=== PATIENT | male | born 1955 | race Caucasian/White ===

== ENCOUNTER 2017-01-05 17:52 | Emergency (ER) | payer BC ==
[2017-01-05] MEDS ORDERED: Proparacaine 0.5% Ophth Soln 15 ML Bottle EYELF ONE (18:00)
[2017-01-05 18:03] VITALS: BP 128/81
[2017-01-05] MEDS ORDERED: Erythromycin Base 0.5% Ophth Oint 1 GM Tube EYELF ONE (18:14)
--- NOTE | 2017-01-05 18:20 | EDM.PDOC ---
ED HPI GENERAL MEDICAL PROBLEM - General Chief Complaint: Eye Problems Stated Complaint: SOMETHING IN LEFT EYE Time Seen by Provider: 01/05/17 18:10 Source of Information: Reports: Patient History Limitations: Reports: No Limitations - History of Present Illness INITIAL COMMENTS - FREE TEXT/NARRATIVE: Patient is a 61-year-old male who presents the ED complaining of left eye irritation, redness, and foreign body sensation. Patient states yesterday while grinding excessive auto body pudding off a car felt like something got in his eye. was able to visualize a foreign object to the pupil. In addition patient believes he has a stye to the upper outer eyelid. There's been some mild swelling, redness, and questionable pus to this area. Eye hasn't been excessively irritated and watery. He has been rubbing his eye. Denies any vision changes. Pain is mild. Treatments HOME INSPECTOR: Reports: Other (see below) Other Treatments HOME INSPECTOR: flushing Left Eye Pain Score (Numeric/FACES): 3 - Related Data Allergies Allergy/AdvReac Type Severity Reaction Status Date / Time No Known Allergies Allergy Verified 01/05/17 18:06 Home Meds: Home Meds . [No Known Home Meds] 01/05/17 [History] Past Medical History Musculoskeletal History: Reports: Other (See Below) Other Musculoskeletal History: left arm compound fracture Social & Family History - Tobacco Use Smoking Status *Q: Current Every Day Smoker Years of Tobacco use: 40 Packs/Tins Daily: 1 - Caffeine Use Caffeine Use: Reports: Soda - Recreational Drug Use Recreational Drug Use: No ED ROS GENERAL - Review of Systems Review Of Systems: ROS reveals no pertinent complaints other than HPI. ED EXAM GENERAL W FULL EYE - Physical Exam Exam: See Below Exam Limited By: No Limitations General Appearance: Alert, WD/WN, No Apparent Distress Eye Exam: Right Eye: Normal Inspection, Left Eye: Corneal Abrasion, Foreign Body , Bilateral Eye: EOMI, PERRL, Vision Changes (none stated) Visual Acuity (R) 20/: 40 Visual Acuity (L) 20/: 50 With Correction: No Eyelids: Left: Edema, Erythema, Infraorbital Anesthesia, Lid Everted for Exam, Stye (none found) Conjunctiva & Sclera: Right: Normal Appearance, Left: Injected Cornea Exam: Right: Normal Appearance, Left: Corneal Abrasion, Foreign Body, Examined with Flourescein Extraocular Movements: Bilateral: Intact Pupillary Size: Bilateral: 4 mm Pupillary Reaction: Bilateral: Brisk Ears: Hearing Grossly Normal Nose: Normal Inspection Throat/Mouth: Normal Voice, No Airway Compromise Neck: Normal Inspection, Supple Respiratory/Chest: No Respiratory Distress, No Accessory Muscle Use Cardiovascular: Normal Peripheral Pulses, Regular Rate, Rhythm Neurological: Alert, Oriented, CN II-XII Intact, Normal Cognition Psychiatric: Normal Affect, Normal Mood Skin Exam: Warm, Dry, Intact, Normal Color Course - Vital Signs Last Recorded V/S: Last Vital Signs Temp 98.0 F 01/05/17 18:02 Pulse 84 01/05/17 18:02 Resp 20 01/05/17 18:02 BP 128/81 01/05/17 18:02 Pulse Ox 94 L 01/05/17 18:02 - Orders/Labs/Meds Meds: Medications Discontinued Medications Generic Name Dose Route Start Last Admin Trade Name Freq PRN Reason Stop Dose Admin Erythromycin 1 gm 01/05/17 18:14 01/05/17 18:46 Erythromycin 0.5% Ophth Oint EYELF 01/05/17 18:15 1 dose ONETIME ONE Administration Proparacaine HCl 2 ml 01/05/17 18:00 01/05/17 18:19 Proparacaine 0.5% Ophth Soln EYELF 01/05/17 18:01 2 drop ONETIME ONE Administration - Re-Assessments/Exams Free Text/Narrative Re-Assessment/Exam: Foreign body to the left cornea. Visual acuity test to be obtained. 01/05/17 18:38 Small metallic flake to the center aspect of the cornea. Utilized a eye spud this was removed. Black area present where foreign object removed. Appears to be barb aliza. Erythromycin ointment applied. Will discharge patient home with instructions as documented. Departure - Departure Time of Disposition: 18:40 Disposition: Home, Self-Care 01 Condition: Good Clinical Impression: Corneal abrasion Qualifiers: Encounter type: initial encounter Laterality: left Qualified Code(s): S05.02XA - Injury of conjunctiva and corneal abrasion without foreign body, left eye, initial encounter - Discharge Information Instructions: Eye Foreign Body, [id number] Referrals: PCP,None [Primary Care Provider] - Forms: ED Department Discharge Additional Instructions: Apply erythromycin ointment 1 cm ribbon to the left eye four times a day for 5 days. Take ibuprofen and Tylenol for discomfort in alternating fashion. Do not rub the eyes. See your steam hoist operator this coming Friday or Friday for reevaluation. Return to the ED for any new or worsening symptoms.
== END 2017-01-05 18:45 | disposition home or self-care (01) ==
LOC: JD.ED 17:52
DX: T15.02XA Foreign body in cornea, left eye, initial encounter (principal); F17.210 Nicotine dependence, cigarettes, uncomplicated
CPT/HCPCS: 65220; 99283; A9270